=== PATIENT | male | born 1990 | race Caucasian/White ===

== ENCOUNTER 2016-12-21 02:41 | Emergency (ER) | payer SELFPAY ==
[~2016-12-21] VITALS: Ht 182.9 cm; Wt 108.0 kg
[2016-12-21] VITALS (10 sets, daily range): BP systolic 123–171; BP diastolic 56–83; PULSE 68–93; RESP 16–18; TEMP 98.1; O2SAT 98–100
[2016-12-21] MEDS ORDERED: GLUC500T4 PO (02:50)
--- NOTE | 2016-12-21 03:35 | RADRPT ---
EXAM DATE/TIME: 12/21/2016 03:24 [place] COMPARISON: No previous studies available for comparison. INDICATIONS : Shortness of breath, left sided chest pain for 6 hours MEDICAL HISTORY : None. SURGICAL HISTORY : None. ENCOUNTER: Initial ACUITY: 1 day PAIN SCORE: 5/10 LOCATION: Left chest FINDINGS: A single view of the chest demonstrates the lungs to be symmetrically aerated without evidence of mas s, infiltrate or effusion. The cardiomediastinal contours are unremarkable. Osseous structures are intact. CONCLUSION: No acute disease. Darren Waddell MD on December 21, 2016 at 3:33 Board Certified Radiologist. This report was verified electronically.
--- NOTE | 2016-12-21 03:39 | PD ---
HPI Chief Complaint: Respiratory Symptoms Time Seen by Provider: 03:19 Travel History International Travel<30 days: No Contact w/Intl Traveler<30days: No Traveled to known affect area: No History of Present Illness HPI 26 year-old male presents to the emergency department for complaint of left- sided chest pain for approximately one week that worsens with palpation of the chest wall and blood pressure elevation. Patient denies any known chronic medical conditions. Patient has family history of hypertension and diabetes. Patient denies any recent long distance travel protracted bedrest her surgical procedure. Patient denies any lower study pain or swelling. Patient has had no injury or fall or trauma. Patient denies any fever or chills. Patient's had no productive cough. Patient does not have any shortness of breath except for tonight or increase pain with inspiratory effort. Patient rates discomfort 2/10 in intensity. Patient denies any abdominal pain. Patient is unable to identify exacerbating or alleviating factors. Patient does not smoke occasionally drinks alcohol and denies substance use. PFSH Past Medical History Narrative Medical Laminectomy; occasional alcohol use; nursing notes reviewed Medical History: Denies Significant Hx Diminished Hearing: No Immunizations Current: Yes Influenza Vaccination: No Past Surgical History Oral Surgery: Yes (wisdome teeth removal) Social History Alcohol Use: Yes (very rare) Tobacco Use: No Substance Use: No Allergies-Medications (Allergen,Severity, Reaction): Coded Allergies: No Known Allergies (Unverified , 12/21/16) Reported Meds & Prescriptions Reported Meds & Active Scripts Active Reported Glucosamine-Chondroitin 500-400 Mg Tab 1 Tab PO DAILY Review of Systems Except as stated in HPI: all other systems reviewed are Neg General / Constitutional: No: Fever, Chills Eyes: No: Visual changes HENT: No: Headaches, Congestion Cardiovascular: Positive: Chest Pain or Discomfort, No: Palpitations, Diaphoresis Respiratory: Positive: Shortness of Breath Gastrointestinal: No: Nausea, Vomiting, Abdominal Pain Genitourinary: No: Flank Pain Skin: No Rash, No Itching Neurologic: No: Weakness Psychiatric: No: Anxiety Endocrine: No: Heat Intolerance Hematologic/Lymphatic: No: Easy Bruising Physical Exam Narrative GENERAL: Well-developed well-nourished male in no acute distress no respiratory distress SKIN: Warm and dry. HEAD: Normocephalic. EYES: No scleral icterus. No injection or drainage. NECK: Supple, trachea midline. No JVD or lymphadenopathy. CARDIOVASCULAR: Regular rate and rhythm without murmurs, gallops, or rubs. Chest wall: Tender to palpation left anterior chest wall no crepitance no point tenderness no ecchymosis no abrasion no rash no vesicles. RESPIRATORY: Breath sounds equal bilaterally. No accessory muscle use. GASTROINTESTINAL: Abdomen soft, non-tender, nondistended. MUSCULOSKELETAL: No cyanosis, or edema. BACK: Nontender without obvious deformity. No CVA tenderness. Data Data Last Documented VS Vital Signs Date Time Temp Pulse Resp B/P Pulse Ox O2 Delivery O2 Flow Rate FiO2 12/21/16 03:48 71 16 146/71 99 Room Air 12/21/16 02:43 98.1 Orders Chest, Single Ap (12/21/16 ) Electrocardiogram (12/21/16 03:38) Basic Metabolic Panel (Bmp) (12/21/16 03:38) Ckmb (Isoenzyme) Profile (12/21/16 03:38) Complete Blood Count With Diff (12/21/16 03:38) D-Dimer (12/21/16 03:38) Magnesium (Mg) (12/21/16 03:38) Troponin I (12/21/16 03:38) Ecg Monitoring (12/21/16 03:38) Bilateral Bp Monitoring (12/21/16 03:38) Iv Access Insert/Monitor (12/21/16 03:38) Oximetry (12/21/16 03:38) Oxygen Administration (12/21/16 03:38) Sodium Chloride 0.9% Flush (Ns Flush) (12/21/16 03:45) CKMB (12/21/16 03:55) CKMB% (12/21/16 03:55) Ketorolac Inj (Toradol Inj) (12/21/16 04:45) Sodium Chlorid 0.9% 500 Ml Inj (Ns 500 M (12/21/16 04:45) Labs Laboratory Tests Test 12/21/16 03:55 White Blood Count 3.8 TH/MM3 Red Blood Count 5.42 MIL/MM3 Hemoglobin 15.2 GM/DL Hematocrit 44.8 % Mean Corpuscular Volume 82.6 FL Mean Corpuscular Hemoglobin 28.0 PG Mean Corpuscular Hemoglobin 33.9 % Concent Red Cell Distribution Width 12.5 % Platelet Count 181 TH/MM3 Mean Platelet Volume 9.3 FL Neutrophils (%) (Auto) 57.0 % Lymphocytes (%) (Auto) 33.3 % Monocytes (%) (Auto) 6.1 % Eosinophils (%) (Auto) 1.6 % Basophils (%) (Auto) 2.0 % Neutrophils # (Auto) 2.1 TH/MM3 Lymphocytes # (Auto) 1.3 TH/MM3 Monocytes # (Auto) 0.2 TH/MM3 Eosinophils # (Auto) 0.1 TH/MM3 Basophils # (Auto) 0.1 TH/MM3 CBC Comment DIFF FINAL Differential Comment D-Dimer Quantitative (PE/DVT) 0.19 MG/L FEU Sodium Level 143 MEQ/L Potassium Level 3.7 MEQ/L Chloride Level 110 MEQ/L Carbon Dioxide Level 28.0 MEQ/L Anion Gap 5 MEQ/L Blood Urea Nitrogen 26 MG/DL Creatinine 1.10 MG/DL Estimat Glomerular Filtration 80 ML/MIN Rate Random Glucose 99 MG/DL Calcium Level 8.3 MG/DL Magnesium Level 2.0 MG/DL Total Creatine Kinase 355 U/L Creatine Kinase MB 3.2 NG/ML Creatine Kinase MB % 0.9 % Troponin I LESS THAN 0.02 NG/ML MDM Medical Decision Making Medical Screen Exam Complete: Yes Emergency Medical Condition: Yes Medical Record Reviewed: Yes Interpretation(s) cxr: FINDINGS: A single view of the chest demonstrates the lungs to be symmetrically aerated without evidence of mass, infiltrate or effusion. The cardiomediastinal contours are unremarkable. Osseous structures are intact. CONCLUSION: No acute disease. Darren Waddell MD on December 21, 2016 at 3:33 Board Certified Radiologist. This report was verified electronically. EKG normal sinus rhythm rate [address] elevation or injury pattern change or ectopy noted Differential Diagnosis Chest pain, atypical chest pain, musculoskeletal pain, pleurisy, costochondritis , PE, ACS, uncontrolled hypertension Narrative Course Patient placed on monitor IV access obtained specimens collected and sent for resulting EKG performed which shows sinus rhythm no acute ST elevation or injury pattern change in chest x-ray shows no pneumothorax Patient resting comfortably waiting on lab results Labs resulted total white cell count mildly depressed 3800 suspicious for viral process chemistries remarkable for mild renal insufficiency/dehydration patient given IV fluid bolus and encouraged to increase fluid hydration For inflammatory pain patient received one-time dose of nonsteroidal anti- inflammatory Toradol 30 mg IV D-dimer is not elevated 0.19; troponin I is less than 0.02, not elevated total CK is elevated with patient is very muscular and does workout at the gym and MB percent is 0.9% not elevated At 5 AM patient is stable for outpatient management and follow-up with local primary care provider or clinic is encouraged to return to the emergency department for any concerns or change in condition Diagnosis Primary Impression: Atypical chest pain Additional Impression: Viral syndrome Referrals: [facility] call for appointment Primary Care Physician call for appointment Patient Instructions: General Instructions Additional Instructions: Increase fluid hydration Take as needed as tolerated ibuprofen/Advil/Motrin 800 mg as often as every 8 hours for the next 2-3 days as needed for pain associated inflammation or for fever 100.4F or greater Monitor temperature every 4 hours with thermometer and take as needed acetaminophen/Tylenol every 4 hours for fever 100.4F or greater Increase fluid hydration Follow-up with primary care provider/ clinic Return to the emergency department for any concerns or change in condition Med/Other Pt SpecificInfo: No Meds Exist/No RX given Disposition: 01 DISCHARGE HOME Condition: Stable Connie Antoine MD Dec 21, 2016 03:39
[2016-12-21] MEDS ORDERED: SODIUM CHLORIDE 0.9% FLUSH 10 ML FLUSH IVF PRN (03:45)
[2016-12-21 04:16] LABS: AUTOMATED NEUTROPHIL # 2.1 TH/MM3 (1.8-7.7); BASOPHIL # 0.1 TH/MM3 (0-0.2); EOSINOPHIL # 0.1 TH/MM3 (0-0.4); EOSINOPHIL % 1.6 % (0.0-4.0); HEMATOCRIT 44.8 % (39.0-51.0); HEMO FLAGS DIFF FINAL; LYMPH % 33.3 % (9.0-44.0); LYMPHOCYTE # 1.3 TH/MM3 (1.0-4.8); MEAN CELL VOLUME 82.6 FL (80.0-100.0); MEAN CORPUSCULAR HGB CONC 33.9 % (32.0-36.0); MONO % 6.1 % (0.0-8.0); PLATELET COUNT 181 TH/MM3 (150-450); RED BLOOD COUNT 5.42 MIL/MM3 (4.50-5.90); RED CELL DISTRIBUTION WIDTH 12.5 % (11.6-17.2); WHITE BLOOD COUNT 3.8 TH/MM3 (4.0-11.0)
[2016-12-21 04:24] LABS: CHLORIDE 110 MEQ/L (98-107); POTASSIUM 3.7 MEQ/L (3.5-5.1); SODIUM (NA) 143 MEQ/L (136-145)
[2016-12-21 04:27] LABS: ANION GAP 5 MEQ/L (5-15); BLOOD UREA NITROGEN 26 MG/DL (7-18)
[2016-12-21 04:30] LABS: GLOMERULAR FILTRATION RATE 80 ML/MIN (>89)
[2016-12-21 04:34] LABS: CREATINE KINASE 355 U/L (39-308)
[2016-12-21] MEDS ORDERED: SODIUM CHLORID 0.9% 500 ML INJ 500 ML IV ONE (04:45)
[2016-12-21] MEDS ORDERED: KETOROLAC TROMETHAMINE 30 MG/ML (IVP) VIAL IV PUSH ONE (04:45)
[2016-12-21 04:46] LABS: CKMB 3.2 NG/ML (0.5-3.6)
--- NOTE | 2016-12-21 15:26 | EKG ---
Date Performed: 12/21/2016 Time Performed: 04:04:01 PTAGE: 26 years EKG: Sinus rhythm NONSPECIFIC T-WAVE ABNORMALITY BORDERLINE ECG NO PREVIOUS TRACING DOCTOR: Federica Banuelos Interpretating Date/Time 12/21/2016 15:22:55
== END 2016-12-21 06:03 | disposition home or self-care (01) ==
LOC: PHED 02:41
DX: R07.89 Other chest pain (principal); B34.9 Viral infection, unspecified; R03.0 Elevated blood-pressure reading, without diagnosis of hypertension; R06.02 Shortness of breath
CPT/HCPCS: 71010; 80048; 82550; 82552; 83735; 84484; 85025; 85379; 93005; 96361; 96374; 99285; J1885; J7040